=== PATIENT | female | born 1960 | race Caucasian/White ===

== ENCOUNTER → 2016-07-20 | Outpatient (CLI) | payer OTHER ==
[2012-06-23 14:21] VITALS: BP 135/84
--- NOTE | 2016-07-21 07:58 | RAD ---
HISTORY: Spondylosis, disc disease, neck pain Study: Cervical spine five view Comparison: None Findings: The prevertebral soft tissues are normal. The alignment is normal. The alignment is stable in flexio n and extent. The vertebral bodies are of average height degenerative disc disease is present at C5- 6. The posterior elements are intact. Bilateral facet degenerative joint disease is present. IMPRESSION: Degenerative disc disease C5-6 Bilateral facet degenerative joint disease Reported By:
--- NOTE | 2016-07-21 08:24 | CT ---
HISTORY: Cervical disc disorder, spondylosis Study: CT cervical spine without con Comparison: Plain films July 20, 2016 Technique: axial non contrast images with coronal and sagittal reformats. Dose reduction procedures were used with MA/kv adjusted for body size. Findings: The prevertebral soft tissues are normal. The alignment is normal. The vertebral bodies are of avera ge height. Slight disc space narrowing is present at C4-5. More significant disc space narrowing is present at C5-6. The pedicles, spinous processes, and posterior elements are intact. Diffuse bilater al facet degenerative joint disease is present most prominent at C1-2 on the left. Uncovertebral amaris nt degenerative joint disease is present at C5-6 bilaterally. No obvious disc protrusions are identi fied however CT is not adequate for the evaluation of cervical disc disease. If cervical disc diseas e is a clinical consideration MRI would be of further diagnostic value. IMPRESSION: Degenerative disc disease C4-5, C5-6 Facet degenerative joint disease as described. Bilateral uncovertebral joint degenerative joint disease C5-6 Reported By:
== END | disposition home or self-care (01) | DRG 552 ==
LOC: RAD 16:20
PROVIDERS: ATTEND Neurological Surgery
DX: M47.892 Other spondylosis, cervical region (principal); M50.121 Cervical disc disorder at C4-C5 level with radiculopathy; M50.321 Other cervical disc degeneration at C4-C5 level; M50.322 Other cervical disc degeneration at C5-C6 level
CPT/HCPCS: 72050; 72125